=== PATIENT | male | born 1965 | race Caucasian/White ===

== ENCOUNTER 2025-07-29 06:27 | Day surgery (SDC) | payer OTHER, SELFPAY ==
[2025-07-29 07:19] LABS: Glucose - Point of Care 126 mg/dl (70-99)
== END 2025-07-29 23:59 | disposition home or self-care (01) ==
LOC: GI 06:27
PROVIDERS: ATTENDING PHYSICIAN Specialist; FAMILY PHYSICIAN Family Medicine
DX: Z12.11 Encounter for screening for malignant neoplasm of colon (principal); D12.3 Benign neoplasm of transverse colon; D12.5 Benign neoplasm of sigmoid colon; K51.40 Inflammatory polyps of colon without complications; Z86.0101 Personal history of adenomatous and serrated colon polyps
CPT/HCPCS: 45385; 45380; 82962; 88305